=== PATIENT | male | born 1985 | race Two or more races ===

== ENCOUNTER 2019-03-17 16:11 | Outpatient (CLI) | payer OTHER | END 2019-03-17 17:03 | disposition home or self-care (01) | LOC: TOM 16:11 | DX: S42.021A Displaced fracture of shaft of right clavicle, initial encounter for closed fracture (principal) ==

== ENCOUNTER 2019-03-28 13:43 | Outpatient (CLI) | payer OTHER | END 2019-03-28 13:46 | disposition home or self-care (01) | LOC: RAD 13:43 | DX: S42.021A Displaced fracture of shaft of right clavicle, initial encounter for closed fracture (principal) ==